=== PATIENT | male | born 1950 ===

== ENCOUNTER 2025-06-19 09:49 | Outpatient (AMB) | payer MEDICARE, OTHER, SELFPAY ==
--- OUTSIDE RECORDS SUMMARY | 2025-06-19 10:56 | XMS_ITS | Encounter Summary ---
Author Organization [facility] Address [address] [place] [address] Phone Care Team Providers Care Shirt Marker Name Role Phone Alfredo Maya DO Primary Care Provider [phone] Alfredo Maya DO Unavailable Encounter Details Date Type Department Care Team (Late st Contact Info) Description 07/13/2021 Transcribe Orders [facility] [address] [place] [address] Alfredo Maya DO [address] [place] [address] [email or web address] Social History Tobacco Use Types Packs/Day Years Used Date Smoking Tobacco: Former Cigarettes Q uit: 1980 Smokeless Tobacco: Never Alcohol Use Standard Drinks/Week Comments Yes 4 (1 standard drink = 0.6 oz pur e alcohol) Sex and Gender Information Value Date Recorded Sex Assigned at Not on file Legal Sex Male 10:02 PM EDT Gender Identity Not on file Sexual Orientation Not on file documented as of this encounter Plan of Treatment Not on file documented as of this encounter Visit Diagnoses Not on filedocumented in this encounter Additional Health Concerns Infection Onset Date Last Indicated Resolved Time COVID-19 07/02/2021 07/02/2021 07/23/2021 1:24 AM EDT documented as of this encounter Care Teams Shirt Marker Relationship Specialty Start Date End Date Alfredo Maya DO [address] [place] [address] [email or web address] PCP - General Family Medicine 01/04/20 Alfredo Maya DO [address] [place] [address] [email or web address] Insurance Assigned Provider 01/21/24 10/22/24 documented as of this encounter Additional Source Comments The information contained in this document represents components of the legal health record. It is not the complete legal health record.[facility]
--- OUTSIDE RECORDS SUMMARY | 2025-06-19 10:56 | XMS_ITS | Encounter Summary ---
Author Organization [facility] Address [address] [place] [address] Phone Care Team Providers Care Transportation Agent Name Role Phone Alfredo Maya DO Primary Care Provider [phone] Alfredo Maya DO Unavailable Encounter Details Date Type Department Care Team (Late st Contact Info) Description 08/20/2024 Procedure Pass [facility] [address] [place] [address] Social History Tobacco Use Types Packs/Day Years Used Date Smoking Tobacco: Former Cigarettes Q uit: 1980 Smokeless Tobacco: Never Alcohol Use Standard Drinks/Week Comments Yes 4 (1 standard drink = 0.6 oz pur e alcohol) Education Answer Date Recorded Are you interested in more education? Not on sue e 02/11/2023 Are you concerned about learning? Not on file 02/11/2023 No 02/11/2023 No 02/11/2023 Digital Access Answer Date Recorded No 03/14/2023 No 03/14/2023 Reliable internet access at home? Not on file 03/14/2023 Device with a working camera? Not on file Intimate Partner Violence Answer Date R ecorded Denied Basic Needs Not on file 08/17/2024 In the past 12 months have y ou been in a relationship with a person who hurts, threatens, or tries to control you? No 08/17/2024 Worried food would run out Not on file 08/17 In the past 12 months have y ou been in a relationship with a person who hurts, threatens, or tries to control you? 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, Nutritional Counseling Not on file Not on file Not on file documented as of this encounter Plan of Treatment Not on file documented as of this encounter Visit Diagnoses Not on filedocumented in this encounter Additional Health Concerns Assessment Noted Time PHQ-2 Depression Total Score: 0 08/17/20 24 9:07 AM EDT documented as of this encounter Care Teams Transportation Agent Relationship Specialty Start Date End Date Alfredo Maya DO [address] [place] [address] [email or web address] PCP - General Family Medicine 01/04/20 Alfredo Maya DO [address] [place] [address] Insurance Assigned Provider 01/21/24 10/22/24 documented as of this encounter Additional Source Comments The information contained in this document represents components of the legal health record. It is not the complete legal health record.[facility]
--- OUTSIDE RECORDS SUMMARY | 2025-06-19 10:56 | XMS_ITS | Encounter Summary ---
Author Organization [facility] Address [address] [place] [address] Phone Care Team Providers Care Car Repair Supervisor Name Role Phone Alfredo Maya DO Primary Care Provider [phone] Alfredo Maya DO Unavailable Encounter Details Date Type Department Care Team (Late st Contact Info) Description 12/19/2020 Transcribe Orders [facility] [address] [place] [address] Alfredo Maya DO [address] [place] [address] [email or web address] Social History Tobacco Use Types Packs/Day Years [...] Infection Onset Date Last Indicated Resolved Time CoV-Exposed Comment:Positive COVID-19 06/15/2021 06/15/2021 07/03/2021 5:1 4 PM EDT CoV-Risk 2021 07/02/2021 07/03/2021 5:14 PM EDT COVID-19 07/02/2021 07/02/2021 07/23/2021 1:24 AM EDT documented as of this encounter Care Teams Car Repair Supervisor Relationship Specialty Start Date End Date Alfredo Maya DO [address] [place] [address] [email or web address] PCP - General Family Medicine 01/04/20 Alfredo Maya DO [address] [place] [address] [email or web address] Insurance Assigned Provider 01/21/24 10/22/24 documented as of this encounter Additional Source Comments The information contained in this document represents components of the legal health record. It is not the complete legal health record.[facility]
--- OUTSIDE RECORDS SUMMARY | 2025-06-19 10:56 | XMS_ITS | Clinical Summary ---
Author Organization [facility] Address [address] [place] [address] Phone Care Team Providers Care Mechanical Engineering Officer Name Role Phone BrayanMarvin toledomariann Conteh DO Primary Care Provider [phone] Allergies No known active allergies Medications loratadine (CLARITIN) 10 mg tablet Take 10 mg by mouth daily. Active omega 0-idm-gnm-fish oil 1,000 mg (120 mg-180 mg) Cap Take 1 capsule by mouth daily. Active ascorbic acid, vitamin C, (VITAMIN C) 500 MG tablet Take 500 mg by mouth daily. Active therapeutic multivitamin tablet Take 1 tablet by mouth daily. Active sildenafiL (VIAGRA) 100 mg tablet Take 1 tablet (100 mg total) by mouth daily as needed. 12 tablet 1 1 Active VITAMIN E ACETATE ORAL Take by mouth. Active indomethacin (INDOCIN) 50 MG capsuleIndication s:PRN Take 1 capsule (50 mg total) by mouth 3 (three) times a day with meals. Indications: PRN 21 capsule 1 4 Active pancrelipase, rqvynf-jpdyfwlj-q mylase, (CREON) 36,000-114,000- 180,[address] capsule Take one capsule up to 4 times daily 100 capsule 5 Active Active Problems Problem Noted Date Diagnosed Date Idiopathic chronic gout of multiple sites withou t tophus 11/17/2024 Undiagnosed cardiac murmurs 08/20/2024 Dyspepsia 06/02/2023 Assessment & Plan (06/02/2023 9:50 AM EDT): Pt did not find omperazole helpful. He does well with diet. He would like H pylori testing. He is advised to consider EGD as pt may have hiatal hernia or esophageal web. He wishes to defer for the time being. He has seen Dr Armenta in the past and would consider seeing him again if needed. Annual physical exam 02/12/2022 Assessment & Plan (08/20/2024 10:32 AM EST): Colonoscopy 05/05 wnl no further required. UTD with AAA screening. Fasting labs to be checked. Pt declines statin medication and we'll defer repeat testing as it is unlikely to impact any treatment choices. Pt declines any vaccinations. Pt doing well with diet and exercise regimen. Assessment & Plan (06/02/2023 9:51 AM EDT): Colonoscopy 05/05 wnl no further required. UTD with AAA screening. Fasting labs done last year. Pt declines statin medication and we'll defer repeat testing as it is unlikely to impact any treatment choices. Pt declines any vaccinations. Pt doing well with diet and exercise regimen. Assessment & Plan (02/12/2022 1:16 PM EDT): Colonoscopy 05/05 wnl no further required. Will refer for AAA screening. Fasting labs ordered. Pt declines any vaccinations. Pt doing well with diet and exercise regimen. Pancreatic insufficiency 02/12/2022 Assessment & Plan (08/20/2024 10:13 AM EST): Takes creon and OTC pancreatic supplement with good effect to help with digestion. Assessment & Plan (06/02/2023 9:13 AM EDT): Takes creon and OTC pancreatic supplement with good effect to help with digestion. Assessment & Plan (02/12/2022 11:10 AM EDT): Takes creon with good effect to help with digestion. Benign prostatic hyperplasia with urinary hesita ncy 02/12/2022 Assessment & Plan (08/20/2024 10:20 AM EST): Pt manages with easy tommy (saw palmetto tea) not interested in medication or Urology evaluation at this time although he may be open to seeing Urology later this year. Assessment & Plan (06/02/2023 9:13 AM EDT): Pt manages with easy tommy (saw palmetto tea) not interested in medication or Urology evaluation at this time. Assessment & Plan (02/12/2022 11:16 AM EDT): Pt manages with easy tommy (saw palmetto tea) not interested in medication or Urology evaluation at this time. Anxiety 02/12/2022 Assessment & Plan (08/20/2024 10:22 AM EST): Situational anxiety rarely requires diazepam. Assessment & Plan (06/02/2023 9:10 AM EDT): Situational anxiety rarely requires diazepam. Assessment & Plan (02/12/2022 1:10 PM EDT): Situational anxiety rarely requires diazepam. History of tobacco use 02/12/2022 Assessment & Plan (06/02/2023 9:11 AM EDT): Quit 1979. Not a candidate for lung cancer screening. 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 Pt taking care with diet and using some dietary supplements. He has a rx for indocin which he uses rarely. Consider referral to Rheumatology prn if symptoms occur more frequently. Pt does not currently appear to require daily allopurinol. Assessment & Plan (06/02/2023 9:10 AM EDT): Rare brief toe discomfort. Pt taking care with diet and using some dietary supplements. He has a rx for indocin to use prn. We'll consider colchicine or prednisone prn. Consider referral to Rheumatology prn if symptoms occur more frequently. Pt does not currently appear to require daily allopurinol. Assessment & Plan (02/12/2022 11:05 AM EDT): Pt taking care with diet and using some dietary supplements. He has a rx for indocin to use prn. We'll consider colchicine or prednisone prn. Consider referral to Rheumatology prn if symptoms occur more frequently. Pt does not currently appear to require daily allopurinol. Assessment & Plan (11/30/2020 10:24 AM EST): Pt counseled on appropriate diet and given information hand outs. He will be rx indocin to use prn. We'll consider colchicine or prednisone prn. Consider referral to Rheumatology prn if symptoms occur more frequently. Pt does not currently appear to require daily allopurinol. Seasonal allergic rhinitis due to pollen 020 Assessment & Plan (08/20/2024 10:15 AM EST): Pt manages with allergy shots and OTC antihistamines. Assessment & Plan (06/02/2023 9:15 AM EDT): Pt manages with OTC antihistamines. Assessment & Plan (03/11/2020 10:36 AM EDT): Pt manages with OTC antihistamines. Erectile dysfunction 03/11/2020 Assessment & Plan (08/20/2024 10:15 AM EST): Has rx for viagra but has yet to use. Assessment & Plan (06/02/2023 9:12 AM EDT): Has rx for viagra but has yet to use. Assessment & Plan (02/12/2022 11:08 AM EDT): Has rx for viagra but has yet to do a trial. Assessment & Plan (03/11/2020 10:38 AM EDT): Consider trial with viagra in the future. Diarrhea 03/11/2020 Assessment & Plan (03/11/2020 10:38 AM EDT): ? Pancreatic insufficiency ? Celiac ? Giardia, stools have some form so Cdif unlikely. ? IBS. We'll do a trial with creon and perform testing as above. Consider GI eval as well. Pt not interested in eval or scope at this time but does agree to FIT testing. Dyslipidemia 03/11/2020 Assessment & Plan (08/20/2024 10:15 AM EST): Borderline values in the past that pt has managed through diet and exercise. We'll continue to monitor and make further recommendations prn. Pt not interested in a statin. Pt has no family hx of CAD. Assessment & Plan (06/02/2023 9:19 AM EDT): Borderline values in the past that pt has managed through diet and exercise. We'll continue to monitor and make further recommendations prn. Pt not interested in a statin. Pt has no family hx of CAD. Assessment & Plan (02/12/2022 11:02 AM EDT): Borderline values in the past that pt has managed through diet and exercise. We'll continue to monitor and make further recommendations prn. Pt not interested in a statin. Pt has no family hx of CAD. Assessment & Plan (03/11/2020 10:36 AM EDT): Borderline values in the past that pt has managed through diet and exercise. We'll continue to monitor and make further recommendations prn. Screening for condition 03/11/2020 Encounters Date Type Department Care Team Description 05/20/2025 Refill [facility] [address] [place] [address] Ramírez Maya, DO Medication Refill from Last 3 Months Family History Medical History Relation Comments Breast cancer Mother Relation Status Comments Mother Social History Tobacco Use Types Packs/Day Years Used Date Smoking Tobacco: Former Cigarettes Q uit: 1980 Smokeless Tobacco: Never Tobacco Cessation:Counseling Given: Not Answered Alcohol Use Standard Drinks/Week Comments Yes 4 [...] file Not on file Not on file Last Filed Vital Signs Vital Sign Reading Time Taken Comments Blood Pressure 114/64 08/20/2024 9:50 AM EST Pulse 64 08/20/2024 9:50 AM EST Temperature 36.3 C (97.4 F) 08/20/2024 9:50 AM EST Respiratory Rate 20 08/20/2024 9:50 AM EST Oxygen Saturation 97% 08/20/2024 9:50 AM EST Inhaled Oxygen Concentration - - Weight 89.8 kg (198 lb) 08/20/2024 9:50 AM EST Height 180.3 cm (5' 11 ) 08/20/2024 9:50 AM EST Body Mass Index 27.62 08/20/2024 9:50 AM EST Plan of Treatment Health Maintenance Due Date Last Done Comments Adult Td,Tdap Booster 1950 SMOKING Hx and SMOKELESS TOBACCO SCREENING 1963 COLOGUARD 1995 FIT TEST 1995 SIGMOIDOSCOPY 1995 VIRTUAL COLONOSCOPY 1995 PNEUMOCOCCAL VACCINES (50+ years) (1 of 1 - PCV) 2000 ZOSTER VACCINES (1 of 2) 2000 FOBT 03/26/2021 03/26/2020 INFLUENZA VACCINE (#1) 2025 COVID-19 VACCINE (1 - 2023- season) 2025 RSV VACCINE (1 - 1-dose 75+ series) 2025 DEPRESSION SCREENING 08/17/2025 08/17/2024 LIPID PANEL 02/12/2027 02/12/2022, 01/16, 12/19/2020, Additional history exists COLONOSCOPY 05/15/2030 05/15/2020 COLORECTAL CANCER SCREENING 05/15/2030 HEPATITIS C SCREENING Completed 12/19/2020, 021 ABDOMINAL AORTIC ANEURYSM (AAA) SCREENING Completed 03/10/2022 HEPATITIS A VACCINES Aged Out No long er eligible based on patient's age to complete this topic HIB VACCINES Aged Out No longer eligi ble based on patient's age to complete this topic MENINGOCOCCAL VACCINES (ACWY) Aged Out No longer eligible based on patient's age to complete this topic MENINGOCOCCAL VACCINES (B) Aged Out N o longer eligible based on patient's age to complete this topic Medical Devices Not on file Procedures Procedure Name Priority Date/Time Associated Diagnosis Comments US ABDOMINAL AORTIC SCREENING Routine 03/10/2022 8:41 AM EDT History of tobacco use LIPID PANEL Routine 02/12/2022 11:55 AM EDT Annual physical exam HEPATITIS C ANTIBODY, QUALITATIVE Routine 12/19/2020 9:11 AM EST Screening for condition ENDOSCOPY, COLON 05/15/2020 9:49 AM EDT OUTSIDE FOBT Routine 03/26/2020 11:37 AM EDT from Last 3 Months or Most Recently Relevant to Health Maintenance Results * US Abdominal Aortic Screening (03/10/2022 8:41 AM EDT) Anatomical Region Laterality Modality Abdomen Ultrasound 03/10/2022 9:13 AM EDT Impressions 03/10/2022 9:15 AM EDT No evidence of abdominal aortic aneurysm. POS - [id number] Narrative 03/10/2022 9:15 AM EDT COMPARISON: None FINDINGS: Sonographic evaluation reveals the abdominal aorta to be within normal limits in caliber measuring 2.1 x 2.1 cm in AP and transverse dimensions proximally, 1.6 x 1.6 cm in its midportion, and 1.4 x 1.4 cm distally. Iliac arteries are symmetric at 1.2 cm in diameter. There is mild distal aortic and iliac atherosclerotic plaquing. No intraluminal thrombus or abnormal para-aortic fluid collections are noted. Procedure Note Jackie Maya MD - 03/10/2022 COMPARISON: None FINDINGS: Sonographic evaluation reveals the abdominal aorta to be within normallimits in caliber measuring 2.1 x 2.1 cm in AP and transverse dimensionsproximally, 1.6 x 1.6 cm in its midportion, and 1.4 x 1.4 cm distally.Iliac arteries are symmetric at 1.2 cm in diameter. There is mild distalaortic and iliac atherosclerotic plaquing. No intraluminal thrombus orabnormal para-aortic fluid collections are noted. IMPRESSION: No evidence of abdominal aortic aneurysm. POS - [id number] us Ramírez Yady Schmidtus DO IMG US ABDOMEN Final Result * (ABNORMAL) Lipid panel (02/12/2022 11:55 AM EDT) HDL 48 mg/dL [facility] Comment: Interpretation <40 mg/dL: Low HDL cholesterol (major risk factor for CHD) Greater than or equal to 60 mg/dL: High HDL cholesterol ( negative risk factor for CHD) HDL - cholesterol is affected by a number of factors, e.g. smoking, excerise, hormones, sex and age. CHOLESTEROL 312(H) 0 - 240 mg/dL [facility] TRIGLYCERIDES 124 30 - 160 mg/dL [facility] LDL 239(H) 50 - 129 mg/dL [facility] Comment: LDL levels in terms of risk for coronary heart disease: <100 mg/dL: Optimal 100-129 mg/dL: Near or above optimal 130-159 mg/dL: Borderline high 160-189 mg/dL: High >190 mg/dL: Very High CARDIAC RISK RATIO 6.5(H) 3.4 - 5.0 C [facility] Blood 02/12/2022 11:5 5 AM EDT 02/12/2022 12:04 PM EDT [facility] LAB BLOOD ORDERABLES Final Resul t Performing Organization Address City/[facility]/ZIP Co de Phone Number [address] [address] * Hepatitis C antibody, qualitative (12/19/2020 9:11 AM EST) HCV NON-REACTIV E NON-REACTI VE [facility] Blood 12/19/2020 9:11 AM EST 12/19/2020 9:19 AM EST [facility] LAB BLOOD ORDERABLES Final Resul t Performing Organization Address [facility] Co de Phone Number [address] [address] * ENDOSCOPY, COLON (05/15/2020 9:49 AM EDT) Narrative Transcriptions Jackie Armenta MD - 05/15/2020 9:49 AM EDT Patient Name: Uriel Urbina MD:: JACKIE ARMENTA MD Procedure Date: 05/15/2020 9:49 AM Date of : 1950 Age: 69 Admit Type: Outpatient Gender: Male Room: [place] [address] Referring MD: RAMÍREZ MAYA MD Exam Type: Colonoscopy Indications: Positive fecal immunochemical test, Incidentaldiarrhea noted Medications: Monitored Anesthesia Care Procedure: Informed consent was obtained from the patient after discussion of the indications, limitations, alternatives, benefits, and risks of the procedure. Risks specifically discussed include but are not limited to medication reactions, missed lesions, bleeding, perforation, or the need for emergentsurgery. Throughout the procedure, the patient's bloodpressure, pulse, end-tidal CO2, and oxygen saturations were monitored continuously. The Olympus pediatric variable [id number]-[id number] #1 was introduced through the anus and advanced tothe cecum, identified by appendiceal orifice andileocecal valve. The colonoscopy was performed without difficulty. The patient tolerated the procedurefairly well. The quality of the bowel preparation wasgood. Complications: No immediate complications. Estimated blood loss:None. Findings: The digital rectal exam findings includenon-thrombosed external hemorrhoids. Pertinent negatives include normal sphincter tone. Retroflexion in the right colon was performed. The entire examined colon appeared normal on directand retroflexion views. No random biopsies were performed at the request ofthe patient. A diffuse area of mildly melanotic mucosa was foundin the entire colon. Impression: - Non-thrombosed external hemorrhoids found ondigital rectal exam. - The entire examined colon is normal on direct and retroflexion views. - Melanotic mucosa in the entire examined colon. - No specimens collected. Recommendation: - Reassurance - No repeat colonoscopy due to current age (66 yearsor older) and the absence of colonic polyps. JACKIE ARMENTA MD 05/15/2020 10:15:01 AM This report has been signed electronically. Number of Addenda: 0 Note Initiated On: 05/15/2020 9:49 AM Procedure Date: 05/15/2020 9:49:51 AM [address] [place] [address] Ramírez Maya DO GI PROCEDURE ORDERABLES Final Re sult * OUTSIDE FOBT TEST (03/26/2020 11:37 AM EDT) FOBT - External Pos Historical Provider LAB BLOOD ORDERABLES Chastity l Result from Last 3 Months or Most Recently Relevant to Health Maintenance Insurance [facility]IC[facility] PART A & [facility] SUPPLE[facility] JOHNY DEMARCO [id number] MEDICARE PART A & B [facility] [employer] EXTENSION MEDICARE SUPPLEMENT MEDICARE PART A & B [facility] [employer] EXTENSION MEDICARE SUPPLEMENT [facility] EXTENSION MEDICARE SUPPLEMENT [facility]ENSION MEDICARE SUPPLEMENT MEDICARE PART A & B [facility] EXTENSION MEDICARE SUPPLEMENT MEDICARE PART A & B Member Subscriber Plan / Payer (Ef fective 2020-Present) Name:Uriel Calvo Member ID:[id number] Relation to Subscriber:Self Name:Uriel Calvo Subscriber ID:[id number] Payer ID:[id number] Group ID:Not on file Type:Medicare Address: [employer] [address] [place] [id number] [employer] MEDICARE SUPPLEMENT MEDICARE PART A & B [employer] EXTENSION MEDICARE SUPPLEMENT MEDICARE PART A & B [facility] EXTENSION MEDICARE SUPPLEMENT Advance Directives For more information, please contact: [phone] (9AM - 5PM [facility], Tuesday-Tuesday) Documents on File Type Date Recorded Patient Supervisor Wood Room Expl anation Healthcare Proxy 10/27/2021 1:42 PM Care Teams Mechanical Engineering Officer Relationship Specialty Start Date End Date Ramírez Maya DO [address] [place] [address] [email or web address] PCP - General Family Medicine 01/04/20 Additional Source Comments The information contained in this document represents components of the legal health record. It is not the complete legal health record.[facility]
--- OUTSIDE RECORDS SUMMARY | 2025-06-19 10:56 | XMS_ITS | Encounter Summary ---
Author Organization [facility] Address [address] [place] [address] Phone Care Team Providers Care Data Integration Architect Name Role Phone Alfredo Maya DO Primary Care Provider [phone] Alfredo Maya DO Unavailable Encounter Details Date Type Department Care Team (Late st Contact Info) Description 03/21/2020 Transcribe Orders [facility] [address] [place] [address] Alfredo Maya DO [address] [place] [address] Social History Tobacco Use Types Packs/Day Years Used Date Smoking Tobacco: Never Assessed Sex and Gender Information Value Date Recorded [...] documented as of this encounter Care Teams Data Integration Architect Relationship Specialty Start Date End Date Alfredo Maya DO [address] [place] [address] [email or web address] PCP - General Family Medicine 01/04/20 Alfredo Maya DO [address] [place] [address] [email or web address] Insurance Assigned Provider 01/21/24 10/22/24 documented as of this encounter Additional Source Comments The information contained in this document represents components of the legal health record. It is not the complete legal health record.[facility]
--- OUTSIDE RECORDS SUMMARY | 2025-06-19 10:56 | XMS_ITS | Encounter Summary ---
Author Organization [facility] Address [address] [place] [address] Phone Care Team Providers Care Manifold Operator Name Role Phone Alfredo Maya DO Primary Care Provider [phone] Alfredo Maya DO Unavailable Encounter Details Date Type Department Care Team (Late st Contact Info) Description 05/15/2020 Procedure Pass [facility] Endoscopy Admitting Dept Virtual Department [address] [place] [address] Social History Tobacco Use Types Packs/Day Years [...] documented as of this encounter Care Teams Manifold Operator Relationship Specialty Start Date End Date Alfredo Maya DO [address] [place] [address] PCP - General Family Medicine 01/04/20 Alfredo Maya DO 29 [place] [address] Insurance Assigned Provider 01/21/24 10/22/24 documented as of this encounter Additional Source Comments The information contained in this document represents components of the legal health record. It is not the complete legal health record.[facility]
== END 2025-06-19 09:59 | disposition home or self-care (01) ==
LOC: HO.HMGAL 09:49
PROVIDERS: PCP Family Medicine; Visit Provider Registered Nurse Emergency
DX: J30.89 Other allergic rhinitis (principal)
CPT/HCPCS: 95117; 95165

== ENCOUNTER 2025-07-22 10:04 | Outpatient (AMB) | payer MEDICARE, OTHER, SELFPAY ==
--- OUTSIDE RECORDS SUMMARY | 2025-07-22 11:41 | XMS_ITS | Encounter Summary ---
Author Organization [facility] Address [address] [place] [address] Phone Care Team Providers Care Steam Drier Operator Name Role Phone Alfredo Maya DO Primary Care Provider [phone] Alfredo Maya DO Unavailable Encounter Details Date Type Department Care Team (Late st Contact Info) Description 07/13/2021 Transcribe Orders [facility] [address] [place] [address] Alfredo Maya DO [address] [place] [address] [email or web address] Social History Tobacco Use Types Packs/Day Years [...] documented as of this encounter Care Teams Steam Drier Operator Relationship Specialty Start Date End Date Alfredo Maya DO [address] [place] [address] [email or web address] PCP - General Family Medicine 01/04/20 Alfredo Maya DO [address] [place] [address] [email or web address] Insurance Assigned Provider 01/21/24 10/22/24 documented as of this encounter Additional Source Comments The information contained in this document represents components of the legal health record. It is not the complete legal health record.[facility]
--- OUTSIDE RECORDS SUMMARY | 2025-07-22 11:42 | XMS_ITS | Encounter Summary ---
Author Organization [facility] Address [address] [place] [address] Phone Care Team Providers Care Product Safety Lead Name Role Phone Alfredo Maya DO Primary Care Provider [phone] Alfredo Maya DO Unavailable Encounter Details Date Type Department Care Team (Late st Contact Info) Description 05/15/2020 Procedure Pass [facility] Endoscopy Admitting Dept Virtual Department [address] [place] [address] Social History Tobacco Use Types Packs/Day Years [...] documented as of this encounter Care Teams Product Safety Lead Relationship Specialty Start Date End Date Alfredo Maya DO [address] [place] [address] PCP - General Family Medicine 01/04/20 Alfredo Maya DO [address] [place] [address] Insurance Assigned Provider 01/21/24 10/22/24 documented as of this encounter Additional Source Comments The information contained in this document represents components of the legal health record. It is not the complete legal health record.[facility]
--- OUTSIDE RECORDS SUMMARY | 2025-07-22 11:42 | XMS_ITS | Clinical Summary ---
Author Organization [facility] Address [address] [place] [address] Phone Care Team Providers Care Solution Design Engineer Name Role Phone BrayanMarvin toledomariann Conteh DO Primary Care Provider [phone] Allergies No known active allergies Medications loratadine (CLARITIN) 10 mg tablet Take 10 mg by mouth daily. Active omega 0-pbh-gxz-fish oil 1,000 mg (120 mg-180 mg) Cap [...] PRN 21 capsule 1 4 Active pancrelipase, ppcysu-jjmaswky-y mylase, (CREON) 36,000-114,000- 180,[address] [...] Type Department Care Team Description 05/20/2025 Refill [facility] [address] [place] [address] Ramírez Maya, DO Medication Refill from Last [...] 05/15/2030 HEPATITIS C SCREENING Completed 12/19/2020, 021 HEPATITIS A VACCINES Aged Out No long [...] Procedure Name Priority Date/Time Associated Diagnosis Comments LIPID PANEL Routine 02/12/2022 11:55 AM EDT Annual physical exam HEPATITIS C ANTIBODY, QUALITATIVE Routine 12/19/2020 9:11 AM EST Screening for condition ENDOSCOPY, COLON 05/15/2020 9:49 AM EDT OUTSIDE FOBT Routine 03/26/2020 11:37 AM EDT from Last 3 Months or Most Recently Relevant to Health Maintenance Results * (ABNORMAL) Lipid panel (02/12/2022 11:55 AM EDT) HDL 48 mg/dL [facility] Comment: Interpretation <40 mg/dL: Low HDL cholesterol (major risk factor for CHD) Greater than or equal to 60 mg/dL: High HDL cholesterol ( negative risk factor for CHD) HDL - cholesterol is affected by a number of factors, e.g. smoking, excerise, hormones, sex and age. CHOLESTEROL 312(H) 0 - 240 mg/dL [facility] TRIGLYCERIDES 124 30 - 160 mg/dL [facility] LDL 239(H) 50 - 129 mg/dL [facility] Comment: LDL levels in terms of risk for coronary heart disease: <100 mg/dL: Optimal 100-129 mg/dL: Near or above optimal 130-159 mg/dL: Borderline high 160-189 mg/dL: High >190 mg/dL: Very High CARDIAC RISK RATIO 6.5(H) 3.4 - 5.0 [facility] Blood 02/12/2022 11:5 5 AM EDT 02/12/2022 12:04 PM EDT [facility] LAB BLOOD ORDERABLES Final Resul t Performing Organization Address [facility] Co de Phone Number [address] [address] * Hepatitis C antibody, qualitative (12/19/2020 9:11 AM EST) HCV NON-REACTIV E NON-REACTI VE [facility] Blood 12/19/2020 9:11 AM EST 12/19/2020 9:19 AM EST [employer] LAB BLOOD ORDERABLES Final Resul t Performing Organization Address [facility] de Phone Number [address] [address] * ENDOSCOPY, COLON (05/15/2020 9:49 AM EDT) Narrative Transcriptions Jackie Armenta MD - 05/15/2020 9:49 AM EDT Patient Name: Uriel Lubna Attending MD:: JACKIE ARMENTA MD Procedure Date: 05/15/2020 9:49 AM Date of : 1950 Age: 69 Admit Type: Outpatient Gender: Male Room: [place] [address] Referring MD: RAMÍREZ MAYA MD Exam Type: [...] AM Procedure Date: 05/15/2020 9:49:51 AM [address] [place] [address] Ramírez Maya DO GI PROCEDURE ORDERABLES Final Re sult * OUTSIDE FOBT TEST (03/26/2020 11:37 AM EDT) FOBT - External Pos Historical Provider LAB BLOOD ORDERABLES Chastity l Result from Last 3 Months or Most Recently Relevant to Health Maintenance Insurance MEDICARE PART A & B [facility] [employer] MEDICARE SUPPLEMENT MEDICARE PART A & B [id number] MEDICARE SUPPLEMENT JOHNY DEMARCO [id number] MEDICARE PART A & B [employer] EXTENSION MEDICARE SUPPLEMENT [facility] MEDICARE SUPPLEMENT [facility] EXTENSION MEDICARE SUPPLEMENT MEDICARE PART A & B [facility] EXTENSION MEDICARE SUPPLEMENT MEDICARE PART A & B [facility] EXTENSION MEDICARE SUPPLEMENT MEDICARE PART A & B [facility] EXTENSION MEDICARE SUPPLEMENT MEDICARE PART A & B [facility] EXTENSION MEDICARE SUPPLEMENT Advance Directives For more information, please contact: [phone] (9AM - 5PM [facility], Tuesday-Tuesday) Documents on File Type Date Recorded Patient Diesel Technician Expl anation Healthcare Proxy 10/27/2021 1:42 PM Care Teams Solution Design Engineer Relationship Specialty Start Date End Date Ramírez aMya DO [address] [place] [address] [email or web address] PCP - General Family Medicine 01/04/20 Additional Source Comments The information contained in this document represents components of the legal health record. It is not the complete legal health record.[facility]
--- OUTSIDE RECORDS SUMMARY | 2025-07-22 11:42 | XMS_ITS | Encounter Summary ---
Author Organization [facility] Address [address] [place] [address] Phone Care Team Providers Care Radio Reporter Name Role Phone Alfredo Maya DO Primary Care Provider [phone] Alfredo Maya DO Unavailable Encounter Details Date Type Department Care Team (Late st Contact Info) Description 03/21/2020 Transcribe Orders [facility] [address] [place] [address] Alfredo Maya DO [address] [place] [address] [email or web address] Social History Tobacco Use Types Packs/Day Years [...] documented as of this encounter Care Teams Radio Reporter Relationship Specialty Start Date End Date Alfredo Maya DO [address] [place] [address] [email or web address] PCP - General Family Medicine 01/04/20 Alfredo Maya DO [address] [place] [address] [email or web address] Insurance Assigned Provider 01/21/24 10/22/24 documented as of this encounter Additional Source Comments The information contained in this document represents components of the legal health record. It is not the complete legal health record.[facility]
--- OUTSIDE RECORDS SUMMARY | 2025-07-22 11:42 | XMS_ITS | Encounter Summary ---
Author Organization [facility] Address [address] [place] [address] Phone Care Team Providers Care Processing Inspector Name Role Phone Alfredo Maya DO Primary Care Provider [phone] Alfredo Maya DO Unavailable Encounter Details Date Type Department Care Team (Late st Contact Info) Description 12/19/2020 Transcribe Orders [facility] [address] [place] [address] Alfredo Maya DO [address] [facility] [place] [address] [email or web address] Social History Tobacco Use Types Packs/Day Years [...] documented as of this encounter Care Teams Processing Inspector Relationship Specialty Start Date End Date Alfredo Maya DO [address] [place] [address] [email or web address] PCP - General Family Medicine 01/04/20 Alfredo Maya DO [address] [place] [address] [email or web address] Insurance Assigned Provider 01/21/24 10/22/24 documented as of this encounter Additional Source Comments The information contained in this document represents components of the legal health record. It is not the complete legal health record.[facility]
--- OUTSIDE RECORDS SUMMARY | 2025-07-22 11:42 | XMS_ITS | Encounter Summary ---
Author Organization [facility] Address [address] [place] [address] Phone Care Team Providers Care Card Reader Name Role Phone Alfredo Maya DO Primary Care Provider [phone] Alfredo Maya DO Unavailable Encounter Details Date Type Department Care Team (Late st Contact Info) Description 08/20/2024 Procedure Pass [facility] Echo Lab [address] [place] [address] Social History Tobacco Use Types Packs/Day Years [...] documented as of this encounter Care Teams Card Reader Relationship Specialty Start Date End Date Alfredo Maya DO [address] [place] [address] [email or web address] PCP - General Family Medicine 01/04/20 Alfredo Maya DO [address] [place] [address] Insurance Assigned Provider 01/21/24 10/22/24 documented as of this encounter Additional Source Comments The information contained in this document represents components of the legal health record. It is not the complete legal health record.[facility]
== END 2025-07-22 10:51 | disposition home or self-care (01) ==
LOC: HO.HMGAL 10:04
PROVIDERS: PCP Family Medicine; Visit Provider Registered Nurse Emergency
DX: J30.89 Other allergic rhinitis (principal)
CPT/HCPCS: 95117; 95165

== ENCOUNTER 2025-08-19 10:38 | Outpatient (AMB) | payer MEDICARE, OTHER, SELFPAY ==
--- OUTSIDE RECORDS SUMMARY | 2025-08-19 12:59 | XMS_ITS | Encounter Summary ---
Author Organization [facility] Address [address] [place] [address] Phone Care Team Providers Care Bar Examiner Name Role Phone Alfredo Maya DO Primary Care Provider [phone] Alfredo Maya DO Unavailable Encounter Details Date Type Department Care Team (Late Contact Info) Description 07/13/2021 Transcribe Orders [address] [address] Alfredo Maya DO [address] [place] [address] [email or web address] Social History Tobacco Use Types Packs/Day Years [...] as of this encounter Plan of Treatment Upcoming Encounters Date Type Department Care Team (Late Contact Info) Description 10/31/2025 9:00 AM EST Office Visit Alberto [address] [address] Alfredo Maya DO [address] [place] [address] documented as of this encounter Visit Diagnoses Not on filedocumented in this encounter Additional Health Concerns Infection Onset Date Last Indicated Resolved Time COVID-19 07/02/2021 07/02/2021 07/23/2021 1:24 AM EDT documented as of this encounter Care Teams Bar Examiner Relationship Specialty Start Date End Date Alfredo Maya DO [address] [place] [address] PCP - General Family Medicine 01/04/20 Alfredo Maya DO [address] [place] [address] [email or web address] Insurance Assigned Provider 01/21/24 10/22/24 documented as of this encounter Additional Source Comments The information contained in this document represents components of the legal health record. It is not the complete legal health record.[facility]
--- OUTSIDE RECORDS SUMMARY | 2025-08-19 12:59 | XMS_ITS | Encounter Summary ---
Author Organization [facility] Address [address] [place] [address] Phone Care Team Providers Care Chief Investigator Name Role Phone Alfredo Maya DO Primary Care Provider [phone] Alfredo Maya DO Unavailable Encounter Details Date Type Department Care Team (Late st Contact Info) Description 08/20/2024 Procedure Pass [facility] Echo [facility] [address] [place] [address] Social History Tobacco Use Types Packs/Day Years [...] Encounters Date Type Department Care Team (Late st Contact Info) Description 10/31/2025 9:00 AM EST Office Visit [facility] [address] [place] [address] Alfredo Maya DO [address] [place] [address] [email or web address] documented as of this encounter Visit Diagnoses Not on filedocumented in this encounter Additional Health Concerns Assessment Noted Time PHQ-2 Depression Total Score: 0 08/17/20 9:07 AM EDT documented as of this encounter Care Teams Chief Investigator Relationship Specialty Start Date End Date Alfredo Maya DO [address] [place] [address] [email or web address] PCP - General Family Medicine 01/04/20 Alfredo Maya DO [address] [place] [address] [email or web address] Insurance Assigned Provider 01/21/24 10/22/24 documented as of this encounter Additional Source Comments The information contained in this document represents components of the legal health record. It is not the complete legal health record.[facility]
--- OUTSIDE RECORDS SUMMARY | 2025-08-19 12:59 | XMS_ITS | Encounter Summary ---
Author Organization [facility] Address [address] [place] [address] Phone Care Team Providers Care Supervisor Television Chassis Repair Name Role Phone Alfredo Maya DO Primary Care Provider [phone] Alfredo Maya DO Unavailable Encounter Details Date Type Department Care Team (Late st Contact Info) Description 03/21/2020 Transcribe Orders [address] [address] Alfredo Maya DO [address] [place] [address] Social History Tobacco Use Types Packs/Day Years [...] Description 10/31/2025 9:00 AM EST Office Visit [address] [address] Alfredo Maya DO [address] [place] [address] [email or web address] documented as of this encounter Visit Diagnoses Not on filedocumented in this encounter Additional Health Concerns Infection Onset Date Last Indicated Resolved Time CoV-Exposed Comment:Positive COVID-19 06/15/2021 06/15/2021 07/03/2021 5:1 4 PM EDT CoV-Risk 2021 07/02/2021 07/03/2021 5:14 PM EDT COVID-19 07/02/2021 07/02/2021 07/23/2021 1:24 AM EDT documented as of this encounter Care Teams Supervisor Television Chassis Repair Relationship Specialty Start Date End Date Alfredo Maya DO [address] [place] [address] PCP - General Family Medicine 01/04/20 Alfredo Maya DO [address] [place] [address] [email or web address] Insurance Assigned Provider 01/21/24 10/22/24 documented as of this encounter Additional Source Comments The information contained in this document represents components of the legal health record. It is not the complete legal health record.[facility]
--- OUTSIDE RECORDS SUMMARY | 2025-08-19 12:59 | XMS_ITS | Encounter Summary ---
Author Organization [facility] Address [address] [place] [address] Phone Care Team Providers Care Ice House Supervisor Name Role Phone Alfredo Maya DO Primary Care Provider [phone] Alfredo Maya DO Unavailable Encounter Details Date Type Department Care Team (Late Contact Info) Description 12/19/2020 Transcribe Orders [address] [address] Alfredo Maya DO [address] [place] [address] [email or web address] Social History Tobacco Use Types Packs/Day Years [...] Description 10/31/2025 9:00 AM EST Office Visit Remy [address] [address] Alfredo Maya DO [address] [place] [address] [email or web address] documented as of this encounter Visit Diagnoses Not on filedocumented in this encounter Additional Health Concerns Infection Onset Date Last Indicated Resolved Time CoV-Exposed Comment:Positive COVID-19 06/15/2021 06/15/2021 07/03/2021 5:1 4 PM EDT CoV-Risk 2021 07/02/2021 07/03/2021 5:14 PM EDT COVID-19 07/02/2021 07/02/2021 07/23/2021 1:24 AM EDT documented as of this encounter Care Teams Ice House Supervisor Relationship Specialty Start Date End Date Alfredo Maya DO [address] [place] [address] [email or web address] PCP - General Family Medicine 01/04/20 Alfredo Maya DO [address] [place] [address] Insurance Assigned Provider 01/21/24 10/22/24 documented as of this encounter Additional Source Comments The information contained in this document represents components of the legal health record. It is not the complete legal health record.[facility]
--- OUTSIDE RECORDS SUMMARY | 2025-08-19 12:59 | XMS_ITS | Encounter Summary ---
Author Organization [facility] Address [address] [place] [address] Phone Care Team Providers Care Mine Motor Engineer Name Role Phone Alfredo Maya DO Primary Care Provider [phone] Alfredo Maya DO Unavailable Encounter Details Date Type Department Care Team (Late Contact Info) Description 05/15/2020 Procedure Pass [facility] Endoscopy Admitting Dept Virtual Department [address] [place] [address] Social History Tobacco Use Types Packs/Day Years [...] Description 10/31/2025 9:00 AM EST Office Visit [address] [address] Alfredo Maya DO [address] [place] [address] documented as of this encounter Visit Diagnoses Not on filedocumented in this encounter Additional Health Concerns Infection Onset Date Last Indicated Resolved Time CoV-Exposed Comment:Positive COVID-19 06/15/2021 06/15/2021 07/03/2021 5:1 4 PM EDT CoV-Risk 2021 07/02/2021 07/03/2021 5:14 PM EDT COVID-19 07/02/2021 07/02/2021 07/23/2021 1:24 AM EDT documented as of this encounter Care Teams Mine Motor Engineer Relationship Specialty Start Date End Date Alfredo Maya DO [address] [place] [address] [email or web address] PCP - General Family Medicine 01/04/20 Alfredo Maya DO [address] [place] [address] Insurance Assigned Provider 01/21/24 10/22/24 documented as of this encounter Additional Source Comments The information contained in this document represents components of the legal health record. It is not the complete legal health record.[facility]
--- OUTSIDE RECORDS SUMMARY | 2025-08-19 13:00 | XMS_ITS | Clinical Summary ---
Author Organization [facility] Address [address] [place] [address] Phone Care Team Providers Care Pourer Crane Ladle Name Role Phone BrayanRamírez toledo Primary Care Provider [phone] Allergies No known active allergies Medications loratadine (CLARITIN) 10 mg tablet Take 10 mg by mouth daily. Active omega 6-qne-kcy-fish oil 1,000 mg (120 mg-180 mg) Cap [...] 3 (three) times a day with meals. Indications : PRN 21 capsule 1 4 Active pancrelipase, wwhnzf-nnodferj-e mylase, (CREON) 36,000-114,000- 180,[address] capsule Take one capsule up to 4 times daily 100 capsule 5 Active pancrelipase, sfzngn-oajxqgjm-t mylase, (CREON) 36,000-114,000- 180,[address] capsule Take one capsule up to 4 times daily 100 capsule 5 08/08/20 25 Discontinu ed(Reorder ) Active Problems Problem Noted Date Diagnosed Date [...] Type Department Care Team Description 05/20/2025 Refill [facility] Medicine [address] [place] [id number] Ramírez Maya, DO Medication Refill from Last [...] 08/20/2024 9:50 AM EST Plan of Treatment Upcoming Encounters Date Type Department Care Team (Late st Contact Info) Description 10/31/2025 9:00 AM EST Office Visit [facility] [address] [place] [address] Ramírez Maya DO [address] [place] [address] [email or web address] Maintenance Due Date Last Done Comments Adult Td,Tdap Booster 1950 SMOKING Hx and SMOKELESS TOBACCO SCREENING 1963 COLOGUARD 1995 FIT TEST 1995 SIGMOIDOSCOPY 1995 VIRTUAL COLONOSCOPY 1995 PNEUMOCOCCAL VACCINES (50+ years) (1 of 1 - PCV) 2000 ZOSTER VACCINES (1 of 2) 2000 FOBT 03/26/2021 03/26/2020 INFLUENZA VACCINE (#1) 2025 COVID-19 VACCINE (1 - season) 2025 RSV VACCINE (1 - 1-dose [...] (02/12/2022 11:55 AM EDT) HDL 48 mg/dL [facility] Comment: Interpretation <40 mg/dL: Low HDL cholesterol (major risk factor for CHD) Greater than or equal to 60 mg/dL: High HDL cholesterol ( negative risk factor for CHD) HDL - cholesterol is affected by a number of factors, e.g. smoking, excerise, hormones, sex and age. CHOLESTEROL 312(H) 0 - 240 mg/dL [facility] TRIGLYCERIDES 124 30 - 160 mg/dL [facility] LDL 239(H) 50 - 129 mg/dL [facility] Comment: LDL levels in terms of risk for coronary heart disease: <100 mg/dL: Optimal 100-129 mg/dL: Near or above optimal 130-159 mg/dL: Borderline high 160-189 mg/dL: High >190 mg/dL: Very High CARDIAC RISK RATIO 6.5(H) 3.4 - 5.0 C [facility] Blood 02/12/2022 11:5 5 AM EDT 02/12/2022 12:04 PM EDT Ramírez Conteh [employer] DO LAB BLOOD BKR ORDERABLES Final R esult [address] [address] * Hepatitis C antibody, qualitative (12/19/2020 9:11 AM EST) HCV NON-REACTIV E NON-REACTI VE [facility] Blood 12/19/2020 9:11 AM EST 12/19/2020 9:19 AM EST Ramírez J Dacus DO LAB BLOOD BKR ORDERABLES Final R esult [facility] [address] [place] [address] * ENDOSCOPY, COLON (05/15/2020 9:49 AM EDT) Narrative Transcriptions Jackie Armenta MD - 05/15/2020 9:49 AM EDT Patient Name: Uriel Calvo Attending MD:: JACKIE ARMENTA MD Procedure Date: 05/15/2020 9:49 AM Date of : 1950 Age: 69 Admit Type: Outpatient Gender: Male Room: [place] [address] Referring MD: RAMÍREZ MAYA MD Exam Type: [...] 9:49 AM Procedure Date: 05/15/2020 9:49:[address] [place] [address] Ramírez Maya DO GI PROCEDURE ORDERABLES Final Re sult * OUTSIDE FOBT TEST (03/26/2020 11:37 AM EDT) FOBT - External Pos Historical Provider LAB BLOOD ORDERABLES Chastity l Result from Last 3 Months or Most Recently Relevant to Health Maintenance Insurance MEDICARE PART A & B [facility] [employer] MEDICARE SUPPLEMENT MEDICARE PART A & B [facility] EXTENSION MEDICARE SUPPLEMENT MEDICARE PART A & B Member Subscriber Plan / Payer (Ef fective 2020-Present) Name:Lubna Uriel Member ID:[id number] Relation to Subscriber:Self Name:Uriel Calvo Subscriber ID:[id number] Payer ID:[id number] Group ID:Not on file Type:Medicare Address: [employer] [address] [place] [phone] [employer] MEDICARE SUPPLEMENT MEDICARE PART A & B [employer] EXTENSION MEDICARE SUPPLEMENT [facility] MEDIC[facility]PP[facility]MENT [facility] EXTENSION MEDICARE SUPPLEMENT MEDICARE PART A & B [facility] EXTENSION MEDICARE SUPPLEMENT MEDICARE PART A & B [facility] EXTENSION MEDICARE SUPPLEMENT MEDICARE PART A & B Member Subscriber Plan / Payer (Ef fective 2020-Present) Name:Uriel Calvo Member ID:[id number] Relation to Subscriber:Self Name:Uriel Calvo Subscriber ID:[id number] Payer ID:[id number] Group ID:Not on file Type:Medicare Address: [employer] [address] [place] [phone] [facility] EXTENSION MEDICARE SUPPLEMENT Advance Directives For more information, please contact: [phone] (9AM - 5PM [facility], Tuesday-Tuesday) Documents on File Type Date Recorded Patient Match Up Worker Expl anation Healthcare Proxy 10/27/2021 1:42 PM Care Teams Pourer Crane Ladle Relationship Specialty Start Date End Date Ramírez Maya DO [address] [place] [address] [place] [address] [email or web address] PCP - General Family Medicine 01/04/20 Additional Source Comments The information contained in this document represents components of the legal health record. It is not the complete legal health record.[facility]
== END 2025-08-19 10:39 | disposition home or self-care (01) ==
LOC: HO.HMGAL 10:38
PROVIDERS: PCP Family Medicine; Visit Provider Registered Nurse Emergency
DX: J30.89 Other allergic rhinitis (principal)
CPT/HCPCS: 95117; 95165

== ENCOUNTER 2025-09-23 10:58 | Outpatient (AMB) | payer MEDICARE, OTHER, SELFPAY | END 2025-09-23 10:59 | disposition home or self-care (01) | LOC: HO.HMGAL 10:58 | PROVIDERS: PCP Family Medicine; Visit Provider Registered Nurse Emergency | DX: J30.89 Other allergic rhinitis (principal) | CPT/HCPCS: 95117; 95165 ==